=== PATIENT | female | born 1965 | race Caucasian/White ===

== ENCOUNTER → 2016-09-10 | Outpatient (CLI) | payer OTHER ==
[~2016-09-10] MED LIST: CZR50 PO; DOCU-94 PO; EPGI10M SC; FAMO20TA11 PO; FLV1 PO; FNTTP50 TD; GLC500 PO; HYDR-3983 PO; LEVO75TA5 PO; LPT40 PO; LSX40 PO; MYCO500T5 PO; NIFE30TA83 PO; NXM/40 PO; ONDA4TAB10 SL; OXYCONTIN PO; OXYSR10 PO; POTA10TA32 PO; PRED-301 PO; RANI300T PO; SPIR50TA3 PO; SUCR1TAB PO; TPRSR/25 PO; VTMD PO
[2016-09-10 12:02] LABS: ALT/SGPT 13 U/L (12-78); AST/SGOT 11 U/L (15-37)
[2016-09-10 12:09] LABS: ALKALINE PHOSPHATASE 88 U/L (45-117)
[2016-09-10 13:09] LABS: ESTIMATED AVERAGE GLUCOSE 126 mg/dl; HA1C FLAG Normal (Normal)
== END | disposition home or self-care (01) ==
LOC: C.LABSPEC 11:53
PROVIDERS: ATTEND Internal Medicine Rheumatology
DX: R73.9 Hyperglycemia, unspecified (principal); M34.9 Systemic sclerosis, unspecified; Z79.899 Other long term (current) drug therapy; M62.81 Muscle weakness (generalized); K31.819 Angiodysplasia of stomach and duodenum without bleeding; D64.9 Anemia, unspecified; Z51.81 Encounter for therapeutic drug level monitoring

== ENCOUNTER → 2016-09-19 | Day surgery (SDC) | payer OTHER ==
[2016-09-17 08:25] VITALS: Ht 170.2 cm; Wt 83.2 kg
[~2016-09-19] VITALS: Ht 170.2 cm; Wt 83.2 kg
[~2016-09-19] MED LIST changes: -HYDR-3983 PO; +LIDOCAINE HCL 2% 2 ML VIAL (20MG/ML) ONE; +MIDAZOLAM HCL 1 MG/ML 2ML VIAL ONE; +ONDANSETRON INJ 2 MG/ML 2 ML VIAL ONE; +PROPOFOL IV EMULSION 10 MG/ML 20 ML VIAL IV ONE; -SUCR1TAB PO
[2016-09-19 10:57] VITALS: TEMP 37
--- NOTE | 2016-09-19 11:55 | Endo History and Physical ---
History & Physical Date of Service: Sep 19, 2016. Chief Complaint: GAVE Referring Physician: Dr. 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 Past Medical History Gastrointestinal Disorder, Glaucoma, Reflux, High Cholesterol, Sleep Apnea, Hypertension, COPD, Chronic Steroid Use, [place] Past Surgical History Hx Cardiac Surgery: No Hx Internal Defibrillator: No Hx Pacemaker: No Hx Abdominal Surgery: Yes (, ERUM, JEFE, APPY) Hx of Implantable Prosthesis: No Hx Post-Op Nausea and Vomiting: No Hx Cancer Surgery: No Hx Thoracic Surgery: No Hx Orthopedic: Yes (RT/LEFT CTR) Hx Urinary Tract Surgery: No Family History Colon CA, IBD Social History Smoking Status: Former Smoker Hx Substance Use: No Allergies Coded Allergies: Omalizumab (Verified Allergy, Severe, ANAPHYLACTIC, 09/17/16) Sulfa Antibiotics (Verified Allergy, Severe, ANAPHYLAXIS, 09/17/16) Current Medications Reported Home Medications Medications Dose Route/Sig Max Daily Dose Days Date Category Dose Instructions Pepcid (Famotidine) 20 Mg Tab 20 Mg PO DAILY PRN 09/17/16 Reported Duragesic (Fentanyl) 50 Mcg Tdsy 50 Mcg TD CQ72HR 08/14/16 Reported [Oxycontin] 5 Mg PO Q4H 08/14/16 Reported Colace (Docusate Sodium) 100 Mg Cap 100 Mg PO TID 01/09/16 Reported Procrit (Epoetin Rolan) Unknown Strength Inj 1 Dose SC UD 01/09/16 Reported Prednisone 5 Mg Tab 5 Mg PO QAM 01/09/16 Reported Mycophenolate Mofetil 500 Mg Tab 1,000 Mg PO BID 01/09/16 Reported Metformin HCl 500 Mg Tab 500 Mg PO BID 01/09/16 Reported Atorvastatin Calcium (Atorvastatin) 40 Mg Tab 40 Mg PO HS 01/09/16 Reported Furosemide 40 Mg Tab 80 Mg PO QAM 01/09/16 Reported Metoprolol Succinate ER (Metoprolol Succinate) 25 Mg Tabcr 12.5 Mg PO QAM 01/09/16 Reported Aldactone (Spironolactone) 50 Mg Tab 50 Mg PO QAM 01/09/16 Reported Vitamin D (Ergocalciferol) 50,000 Interunit Cap 50,000 Inter.unit PO WK 01/09/16 Reported TAKE THIS MEDICATION EVERY SATURDAY Folic Acid 1 Mg Tab 1 Mg PO BID 01/09/16 Reported Losartan Potassium 50 Mg Tab 50 Mg PO QAM 01/09/16 Reported Potassium Chloride Er (Potassium Chloride Microencaps) 10 Meq Tab 10 Meq PO QAM 01/09/16 Reported TAKE THIS MEDICATION WITH FOOD Levothyroxine Sodium 75 Mcg Tab 75 Mcg PO QAM 11/04/15 Reported Procardia Xl Ext Rel (Nifedipine) 30 Mg Tabcr 30 Mg PO QAM 06/08/15 Reported Zofran Odt (Ondansetron HCl) 4 Mg Tab 4 Mg SL Q6-8HRS PRN 10/23/13 Reported Zantac (Ranitidine Hcl) 300 Mg Tab 300 Mg PO HS 10/15/13 Reported Nexium (Esomeprazole Magnesium) 40 Mg Cap 40 Mg PO BID 08/19/12 Reported TAKE THIS MEDICATION 30 MINUTES BEFORE BREAKFAST AND EVENING MEALS Vital Signs Weight (Kilograms): 83.18 Height (Feet): 5 Height (Inches): 7 Date Time Temp Pulse Resp B/P Pulse Ox O2 Delivery O2 Flow Rate FiO2 09/19/16 11:53 105/49 09/19/16 11:00 87/52 09/19/16 10:57 37 60 20 84/45 98 Room Air Physical Exam General Appearance: WD/WN, no apparent distress Respiratory/Chest: Auscultation: breath sounds normal Cardiovascular: Heart Auscultation: RRR Abdomen: Bowel Sounds: normal Inspection & Palpation: soft, non-distended, no tenderness, guarding & rebound Assessment and Plan Assessment: 51 yo CF who presents for 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
--- NOTE | 2016-09-19 13:38 | Discharge Instructions ---
Endoscopy Patient Instructions Date / Procedure(s) Performed Sep 19, 2016. EGD Allergy Information Coded Allergies: Omalizumab (Verified Allergy, Severe, ANAPHYLACTIC, 09/17/16) Sulfa Antibiotics (Verified Allergy, Severe, ANAPHYLAXIS, 09/17/16) Discharge Date / Findings Sep 19, 2016. GAVE s/p APC Medication Instructions Stopped Medication(s): last dose Metformin Saturday OK to resume all medications today as prescribed Reported Home Medications Medications Dose Route/Sig Max Daily Dose Days Date Category Dose Instructions Pepcid (Famotidine) 20 Mg Tab 20 Mg PO DAILY PRN 09/17/16 Reported Duragesic (Fentanyl) 50 Mcg Tdsy 50 Mcg TD CQ72HR 08/14/16 Reported [Oxycontin] 5 Mg PO Q4H 08/14/16 Reported Colace (Docusate Sodium) 100 Mg Cap 100 Mg PO TID 01/09/16 Reported Procrit (Epoetin Rolan) Unknown Strength Inj 1 Dose SC UD 01/09/16 Reported Prednisone 5 Mg Tab 5 Mg PO QAM 01/09/16 Reported Mycophenolate Mofetil 500 Mg Tab 1,000 Mg PO BID 01/09/16 Reported Metformin HCl 500 Mg Tab 500 Mg PO BID 01/09/16 Reported Atorvastatin Calcium (Atorvastatin) 40 Mg Tab 40 Mg PO HS 01/09/16 Reported Furosemide 40 Mg Tab 80 Mg PO QAM 01/09/16 Reported Metoprolol Succinate ER (Metoprolol Succinate) 25 Mg Tabcr 12.5 Mg PO QAM 01/09/16 Reported Aldactone (Spironolactone) 50 Mg Tab 50 Mg PO QAM 01/09/16 Reported Vitamin D (Ergocalciferol) 50,000 Interunit Cap 50,000 Inter.unit PO WK 01/09/16 Reported TAKE THIS MEDICATION EVERY SATURDAY Folic Acid 1 Mg Tab 1 Mg PO BID 01/09/16 Reported Losartan Potassium 50 Mg Tab 50 Mg PO QAM 01/09/16 Reported Potassium Chloride Er (Potassium Chloride Microencaps) 10 Meq Tab 10 Meq PO QAM 01/09/16 Reported TAKE THIS MEDICATION WITH FOOD Levothyroxine Sodium 75 Mcg Tab 75 Mcg PO QAM 11/04/15 Reported Procardia Xl Ext Rel (Nifedipine) 30 Mg Tabcr 30 Mg PO QAM 06/08/15 Reported Zofran Odt (Ondansetron HCl) 4 Mg Tab 4 Mg SL Q6-8HRS PRN 10/23/13 Reported Zantac (Ranitidine Hcl) 300 Mg Tab 300 Mg PO HS 10/15/13 Reported Nexium (Esomeprazole Magnesium) 40 Mg Cap 40 Mg PO BID 08/19/12 Reported TAKE THIS MEDICATION 30 MINUTES BEFORE BREAKFAST AND EVENING MEALS Provider Instructions Activity Restrictions - No exercising or heavy lifting for 24 hours. - Do not drink alcohol the day of the procedure. - Do not drive a car or operate machinery until the day after the procedure. - Do not make any important decisions or sign important papers in 24 hours after the procedure. Following Day: - Return to full activity which may include returning to work/school. Diet Start your diet with liquids and light foods (jello, soup, juice, toast). Then eat your usual diet if not nauseated. Treatment For Common After Affects For mild abdominal pain, bloating, or excessive gas: - Rest - Eat lightly - Lie on right side Follow-Up Information Follow-up with Dr. Lan Sanchez as scheduled Anesthesia Information What You Should Know You have had a procedure that required some medicine to reduce anxiety and discomfort. This treatment is called moderate sedation. After receiving the treatment, you may be sleepy, but you will be able to breathe on your own. The effects of the treatment may last for several hours. Follow these instructions along with Activity/Diet recommendations noted above: * Do NOT do anything where dizziness or clumsiness would be dangerous. * Rest quietly at home today, then you can be up and about tomorrow. * Have a responsible person stay with you the rest of today. * You may have had an I.V. today. If so, you may take the dressing off later today. Recommendations Call your doctor if: * Trouble breathing * Continuous vomiting for more than 24 hours * Temperature above 101 degrees * Severe abdominal pain or bloating * Pain not relieved by pain medicine ordered * There is increased drainage or redness from any incision * A large amount of rectal bleeding greater than 2-3 tablespoons. (If you had a polyp/s removed or have hemorrhoids, a small amount of blood - from the rectum is to be expected.) * You have any unanswered questions or concerns. IN THE EVENT OF A SERIOUS EMERGENCY, GO TO THE NEAREST EMERGENCY ROOM Your discharge instructions were prepared by provider Tony G. Case. Patient Instructions Signature Page Jessie Elise Patient (or Guardian) Signature/Date: I have read and understand the instructions given to me by my caregivers. Caregiver/RN/Doctor Signature/Date: The above-named patient and/or guardian has received patient instructions on this date. + Original Patient Signature Page (only) stays with chart. Please make copy for patient.
[2016-09-19 14:08] VITALS: BP 98/55; PULSE 61; O2SAT 95
--- NOTE | 2016-09-19 15:19 | GI REPORT ---
Procedure Date: 09/19/2016 1:09 PM Procedure: Upper GI endoscopy Indications: Watermelon stomach (GAVE syndrome) Medicines: Monitored Anesthesia Care Complications: No immediate complications. Estimated Blood Loss: Estimated blood loss: none. Procedure: Pre-Anesthesia Assessment: - Prior to the procedure, a History and Physical was performed, and patient medications and allergies were reviewed. The patient's tolerance of previous anesthesia was also reviewed. The risks and benefits of the procedure and the sedation options and risks were discussed with the patient. All questions were answered, and informed consent was obtained. Prior Anticoagulants: The patient has taken no previous anticoagulant or antiplatelet agents. ASA Grade Assessment: III - A patient with severe systemic disease. After reviewing the risks and benefits, the patient was deemed in satisfactory condition to undergo the procedure. After obtaining informed consent, the endoscope was passed under direct vision. Throughout the procedure, the patient's blood pressure, pulse, and oxygen saturations were monitored continuously. The Scope was introduced through the mouth, and advanced to the second part of duodenum. The upper GI endoscopy was accomplished without difficulty. The patient tolerated the procedure well. Findings: The esophagus was normal. 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 Coagulation for hemostasis using argon plasma was successful. The examined duodenum was normal. Impression: - Normal esophagus. - Gastric antral vascular ectasia with bleeding. Treated with argon plasma coagulation (APC). - Normal examined duodenum. - No specimens collected. Recommendation: - Resume previous diet. - Continue present medications. - Repeat the upper endoscopy PRN for retreatment. - Return to referring physician as previously scheduled. Tony Luna, DO 09/19/2016 1:36:44 PM This report has been signed electronically. Note Initiated On: 09/19/2016 1:09 PM I attest to the content of the Intraoperative Record and orders documented therein, exceptions below
--- NOTE | 2016-09-19 15:32 | Anesthesiology Progress Note ---
Anesthesia Post Op Note Date & Time Sep 19, 2016 at 15:32 Vital Signs Pain Intensity: 0 Vital Signs Past 12 Hours Date Time Temp Pulse Resp B/P Pulse Ox O2 Delivery O2 Flow Rate FiO2 09/19/16 14:08 61 20 98/55 95 Room Air 09/19/16 13:52 60 20 98/52 94 Room Air 09/19/16 13:37 63 20 96/51 97 Room Air 09/19/16 11:53 105/49 09/19/16 11:00 87/52 09/19/16 10:57 37 60 20 84/45 98 Room Air Notes Mental Status: alert / awake / arousable Nausea / Vomiting: adequately controlled Pain: adequately controlled Airway Patency, RR, SpO2: stable & adequate BP & HR: stable & adequate Hydration State: stable & adequate Anesthetic Complications: no major complications apparent
== END | disposition home or self-care (01) ==
LOC: C.GI 10:08
PROVIDERS: ATTEND Internal Medicine
DX: K31.811 Angiodysplasia of stomach and duodenum with bleeding (principal); E11.9 Type 2 diabetes mellitus without complications; I10 Essential (primary) hypertension; F41.9 Anxiety disorder, unspecified; H40.9 Unspecified glaucoma; K21.9 Gastro-esophageal reflux disease without esophagitis; I25.2 Old myocardial infarction; Z79.52 Long term (current) use of systemic steroids; Z87.891 Personal history of nicotine dependence; Z88.2 Allergy status to sulfonamides; Z80.0 Family history of malignant neoplasm of digestive organs

== ENCOUNTER → 2016-12-24 | Outpatient (CLI) | payer OTHER ==
[~2016-12-24] MED LIST changes: -LIDOCAINE HCL 2% 2 ML VIAL (20MG/ML) ONE; -MIDAZOLAM HCL 1 MG/ML 2ML VIAL ONE; -ONDANSETRON INJ 2 MG/ML 2 ML VIAL ONE; -PROPOFOL IV EMULSION 10 MG/ML 20 ML VIAL IV ONE
--- NOTE | 2016-12-24 12:04 | DIAGNOSTIC IMAGING REPORT ---
CHEST 2 VIEWS ROUTINE CLINICAL HISTORY: GENERAL WEAKNESS COMPARISON STUDY: 01/09/2016 FINDINGS: The cardiac and sternal contours remain stable. There is a left-sided A-Port catheter unchanged in position. There is no failure. There is no lobar consolidation. There are no pleural effusions. There are linear scarlike densities within the right midlung zone. There is basilar interstitial thickening best visualized in the lateral view.[ IMPRESSION: No acute findings. Right midlung zone scarring. Basilar interstitial thickening. Electronically signed by: Christopher Gan M.D. 12/24/2016 12:03 PM Dictated Date/Time: 12/24/2016 12:01 PM
[2016-12-24 13:30] LABS: BASO % 0.2 %; BASO ABS # 0.03 K/uL (0-0.2); COMPLETE YES; HEMATOCRIT 35.7 % (37-47); IG% 0.2 %; LYMPH ABS # 0.61 K/uL (1.2-3.4); MEAN CELL VOLUME 84.6 fL (80-100); MEAN CORPUSCULAR HEMOGLOBIN 25.4 pg (25-34); MEAN PLATELET VOLUME 10.2 fL (7.4-10.4); MONO % 3.8 %; NEUT % 89.8 %; PLATELET COUNT 352 K/uL (130-400); RED BLOOD COUNT 4.22 M/uL (4.2-5.4); WHITE BLOOD COUNT 12.23 K/uL (4.8-10.8)
[2016-12-24 13:35] LABS: URINE APPEARANCE CLEAR (CLEAR); URINE BILIRUBIN NEG (NEG); URINE COLOR YELLOW; URINE EPITHELIAL CELL AUTO >30 /lpf (0-5); URINE NITRITE NEG (NEG); URINE PH 5.5 (4.5-7.5); URINE SPECIFIC GRAVITY 1.016 (1.000-1.030); UROBILINOGEN NEG (NEG)
[2016-12-24 13:36] LABS: ESTIMATED AVERAGE GLUCOSE 143 mg/dl; HA1C FLAG Normal (Normal)
[2016-12-24 13:45] LABS: MANUAL MICROSCOPIC REQUIRED? NO; REVIEW REQ? NO
[2016-12-24 13:48] LABS: URINE PROTIEN/CREAT RATIO 0.2 (0-0.2); URINE TOTAL PROTEIN 20.3 mg/dl (0-11.9)
[2016-12-24 14:06] LABS: ALT/SGPT 11 U/L (12-78); AST/SGOT 12 U/L (15-37); BLOOD UREA NITROGEN 33 mg/dl (7-18); BUN/CREATININE RATIO 15.8 (10-20); CALCIUM 8.6 mg/dl (8.5-10.1); CARBON DIOXIDE 31 mmol/L (21-32); CHLORIDE 93 mmol/L (98-107); GLUCOSE 134 mg/dl (70-99); POTASSIUM 4.4 mmol/L (3.5-5.1); SODIUM 133 mmol/L (136-145)
[2016-12-24 14:08] LABS: THYROID STIMULATING HORMONE 0.556 uIu/ml (0.300-4.500)
[2016-12-24 14:17] LABS: ALB/GLOB RATIO 1.1 (0.9-2); ALKALINE PHOSPHATASE 81 U/L (45-117); THYROID STIMULATING HORMONE 0.584 uIu/ml (0.300-4.500)
== END | disposition home or self-care (01) ==
LOC: C.RADBC 11:21
PROVIDERS: ATTEND Physician Assistant Medical
DX: R53.1 Weakness (principal); R60.9 Edema, unspecified; R63.4 Abnormal weight loss; R53.83 Other fatigue; E04.9 Nontoxic goiter, unspecified; E11.9 Type 2 diabetes mellitus without complications

== ENCOUNTER → 2017-02-26 | Outpatient (CLI) | payer OTHER ==
[~2017-02-26] MED LIST changes: -OXYCONTIN PO
[2017-02-26 09:44] LABS: BLOOD UREA NITROGEN 43 mg/dl (7-18); BUN/CREATININE RATIO 23.8 (10-20); CALCIUM 9.3 mg/dl (8.5-10.1); CARBON DIOXIDE 28 mmol/L (21-32); CHLORIDE 96 mmol/L (98-107); GLUCOSE 180 mg/dl (70-99); POTASSIUM 4.2 mmol/L (3.5-5.1); SODIUM 133 mmol/L (136-145)
[2017-02-26 09:50] LABS: PHOSPHORUS 3.6 mg/dl (2.5-4.9)
== END | disposition home or self-care (01) ==
LOC: C.LAB 16:43
PROVIDERS: ATTEND Internal Medicine Nephrology
DX: N28.9 Disorder of kidney and ureter, unspecified (principal); D64.9 Anemia, unspecified; Z51.81 Encounter for therapeutic drug level monitoring; Z79.899 Other long term (current) drug therapy; M34.9 Systemic sclerosis, unspecified

== ENCOUNTER → 2017-03-13 | Day surgery (SDC) | payer OTHER ==
[2017-02-21 12:08] VITALS: Ht 170.2 cm; Wt 75.0 kg
[~2017-03-13] VITALS: Ht 170.2 cm; Wt 75.0 kg
[~2017-03-13] MED LIST changes: +LIDOCAINE HCL 2% 2 ML VIAL (20MG/ML) ONE; +PROPOFOL IV EMULSION 10 MG/ML 20 ML VIAL IV ONE; +SODIUM CHLORIDE 0.9% 500ML 500 ML IV ONE
--- NOTE | 2017-03-13 10:54 | Endo History and Physical ---
History & Physical Date of Service: Mar 13, 2017. Chief Complaint: GAVE Referring Physician: Dr. 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 Past Medical History Gastrointestinal Disorder, Glaucoma, Reflux, High Cholesterol, Sleep Apnea, Hypertension, COPD, Chronic Steroid Use, [place] Past Surgical History Hx Cardiac Surgery: No Hx Internal Defibrillator: No Hx Pacemaker: No Hx Abdominal Surgery: Yes (, ERUM, JEFE, APPY) Hx of Implantable Prosthesis: No Hx Post-Op Nausea and Vomiting: No Hx Cancer Surgery: No Hx Thoracic Surgery: No Hx Orthopedic: Yes (RT/LT CTR) Hx Urinary Tract Surgery: No Family History Colon CA, IBD Social History Smoking Status: Former Smoker Hx Substance Use: Yes (REFER TO MED LIST) Hx Alcohol Use: No Allergies Coded Allergies: Omalizumab (Verified Allergy, Severe, ANAPHYLACTIC, 02/21/17) Sulfa Antibiotics (Verified Allergy, Severe, ANAPHYLAXIS, 02/21/17) Current Medications Reported Home Medications Medications Dose Route/Sig Max Daily Dose Days Date Category Dose Instructions Oxycontin (Oxycodone HCl) 10 Mg Tabcr 1 Tab PO Q4H 02/21/17 Reported Pepcid (Famotidine) 20 Mg Tab 20 Mg PO DAILY PRN 09/17/16 Reported Duragesic (Fentanyl) 50 Mcg Tdsy 50 Mcg TD CQ72HR 08/14/16 Reported Colace (Docusate Sodium) 100 Mg Cap 100 Mg PO TID 01/09/16 Reported Procrit (Epoetin Rolan) Unknown Strength Inj 1 Dose SC UD 01/09/16 Reported Prednisone 5 Mg Tab 5 Mg PO QAM 01/09/16 Reported Mycophenolate Mofetil 500 Mg Tab 1,000 Mg PO BID 01/09/16 Reported Metformin HCl 500 Mg Tab 500 Mg PO BID 01/09/16 Reported Atorvastatin Calcium (Atorvastatin) 40 Mg Tab 40 Mg PO HS 01/09/16 Reported Furosemide 40 Mg Tab 80 Mg PO QAM 01/09/16 Reported Metoprolol Succinate ER (Metoprolol Succinate) 25 Mg Tabcr 12.5 Mg PO QAM 01/09/16 Reported Aldactone (Spironolactone) 50 Mg Tab 50 Mg PO QAM 01/09/16 Reported Vitamin D (Ergocalciferol) 50,000 Interunit Cap 50,000 Inter.unit PO WK 01/09/16 Reported TAKE THIS MEDICATION EVERY SATURDAY Folic Acid 1 Mg Tab 1 Mg PO BID 01/09/16 Reported Losartan Potassium 50 Mg Tab 50 Mg PO QAM 01/09/16 Reported Potassium Chloride Er (Potassium Chloride Microencaps) 10 Meq Tab 10 Meq PO QAM 01/09/16 Reported TAKE THIS MEDICATION WITH FOOD Levothyroxine Sodium 75 Mcg Tab 75 Mcg PO QAM 11/04/15 Reported Procardia Xl Ext Rel (Nifedipine) 30 Mg Tabcr 30 Mg PO QAM 06/08/15 Reported Zofran Odt (Ondansetron HCl) 4 Mg Tab 4 Mg SL Q6-8HRS PRN 10/23/13 Reported Zantac (Ranitidine Hcl) 300 Mg Tab 300 Mg PO HS 10/15/13 Reported Nexium (Esomeprazole Magnesium) 40 Mg Cap 40 Mg PO BID 08/19/12 Reported TAKE THIS MEDICATION 30 MINUTES BEFORE BREAKFAST AND EVENING MEALS Vital Signs Weight (Kilograms): 75 Height (Feet): 5 Height (Inches): 7 Physical Exam General Appearance: WD/WN, no apparent distress Respiratory/Chest: Auscultation: breath sounds normal Cardiovascular: Heart Auscultation: RRR Abdomen: Bowel Sounds: normal Inspection & Palpation: soft, non-distended, no tenderness, guarding & rebound Assessment and Plan Assessment: 51 yo CF who presents for 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 Plan: Proceed with EGD.
--- NOTE | 2017-03-13 11:49 | Discharge Instructions ---
Endoscopy Patient Instructions Date / Procedure(s) Performed Mar 13, 2017. EGD Allergy Information Coded Allergies: Omalizumab (Verified Allergy, Severe, ANAPHYLACTIC, 03/13/17) Sulfa Antibiotics (Verified Allergy, Severe, ANAPHYLAXIS, 03/13/17) Discharge Date / Findings Mar 13, 2017. GAVE s/p therapy with APC Medication Instructions OK to resume all medications today as prescribed Reported Home Medications Medications Dose Route/Sig Max Daily Dose Days Date Category Dose Instructions Oxycontin (Oxycodone HCl) 10 Mg Tabcr 1 Tab PO Q4H 02/21/17 Reported Pepcid (Famotidine) 20 Mg Tab 20 Mg PO DAILY PRN 09/17/16 Reported Duragesic (Fentanyl) 50 Mcg Tdsy 50 Mcg TD CQ72HR 08/14/16 Reported Colace (Docusate Sodium) 100 Mg Cap 100 Mg PO TID 01/09/16 Reported Procrit (Epoetin Rolan) Unknown Strength Inj 1 Dose SC UD 01/09/16 Reported Prednisone 5 Mg Tab 5 Mg PO QAM 01/09/16 Reported Mycophenolate Mofetil 500 Mg Tab 1,000 Mg PO BID 01/09/16 Reported Metformin HCl 500 Mg Tab 500 Mg PO BID 01/09/16 Reported Atorvastatin Calcium (Atorvastatin) 40 Mg Tab 40 Mg PO HS 01/09/16 Reported Furosemide 40 Mg Tab 80 Mg PO QAM 01/09/16 Reported Metoprolol Succinate ER (Metoprolol Succinate) 25 Mg Tabcr 12.5 Mg PO QAM 01/09/16 Reported Aldactone (Spironolactone) 50 Mg Tab 50 Mg PO QAM 01/09/16 Reported Vitamin D (Ergocalciferol) 50,000 Interunit Cap 50,000 Inter.unit PO WK 01/09/16 Reported TAKE THIS MEDICATION EVERY SATURDAY Folic Acid 1 Mg Tab 1 Mg PO BID 01/09/16 Reported Losartan Potassium 50 Mg Tab 50 Mg PO QAM 01/09/16 Reported Potassium Chloride Er (Potassium Chloride Microencaps) 10 Meq Tab 10 Meq PO QAM 01/09/16 Reported TAKE THIS MEDICATION WITH FOOD Levothyroxine Sodium 75 Mcg Tab 75 Mcg PO QAM 11/04/15 Reported Procardia Xl Ext Rel (Nifedipine) 30 Mg Tabcr 30 Mg PO QAM 06/08/15 Reported Zofran Odt (Ondansetron HCl) 4 Mg Tab 4 Mg SL Q6-8HRS PRN 10/23/13 Reported Zantac (Ranitidine Hcl) 300 Mg Tab 300 Mg PO HS 10/15/13 Reported Nexium (Esomeprazole Magnesium) 40 Mg Cap 40 Mg PO BID 08/19/12 Reported TAKE THIS MEDICATION 30 MINUTES BEFORE BREAKFAST AND EVENING MEALS Provider Instructions Activity Restrictions - No exercising or heavy lifting for 24 hours. - Do not drink alcohol the day of the procedure. - Do not drive a car or operate machinery until the day after the procedure. - Do not make any important decisions or sign important papers in 24 hours after the procedure. Following Day: - Return to full activity which may include returning to work/school. Diet Start your diet with liquids and light foods (jello, soup, juice, toast). Then eat your usual diet if not nauseated. Treatment For Common After Affects For mild abdominal pain, bloating, or excessive gas: - Rest - Eat lightly - Lie on right side Follow-Up Information Follow-up with DR SHERMAN as scheduled Anesthesia Information What You Should Know You have had a procedure that required some medicine to reduce anxiety and discomfort. This treatment is called moderate sedation. After receiving the treatment, you may be sleepy, but you will be able to breathe on your own. The effects of the treatment may last for several hours. Follow these instructions along with Activity/Diet recommendations noted above: * Do NOT do anything where dizziness or clumsiness would be dangerous. * Rest quietly at home today, then you can be up and about tomorrow. * Have a responsible person stay with you the rest of today. * You may have had an I.V. today. If so, you may take the dressing off later today. Recommendations Call your doctor if: * Trouble breathing * Continuous vomiting for more than 24 hours * Temperature above 101 degrees * Severe abdominal pain or bloating * Pain not relieved by pain medicine ordered * There is increased drainage or redness from any incision * A large amount of rectal bleeding greater than 2-3 tablespoons. (If you had a polyp/s removed or have hemorrhoids, a small amount of blood - from the rectum is to be expected.) * You have any unanswered questions or concerns. IN THE EVENT OF A SERIOUS EMERGENCY, GO TO THE NEAREST EMERGENCY ROOM Your discharge instructions were prepared by provider Tony Luna. Patient Instructions Signature Page Jessie Olivares Patient (or Guardian) Signature/Date: I have read and understand the instructions given to me by my caregivers. Caregiver/RN/Doctor Signature/Date: The above-named patient and/or guardian has received patient instructions on this date. + Original Patient Signature Page (only) stays with chart. Please make copy for patient.
[2017-03-13 12:12] VITALS: BP 175/98; PULSE 66; O2SAT 96
--- NOTE | 2017-03-13 12:13 | Anesthesiology Progress Note ---
Anesthesia Post Op Note Date & Time Mar 13, 2017 at 12:13 Vital Signs Pain Intensity: 4 Vital Signs Past 12 Hours Date Time Temp Pulse Resp B/P (MAP) Pulse Ox O2 Delivery O2 Flow Rate FiO2 03/13/17 11:56 66 18 110/65 (80) 95 Room Air 03/13/17 11:41 69 18 110/64 (79) 95 Room Air 03/13/17 11:03 37.2 68 18 119/68 (85) 95 Room Air Notes Mental Status: alert / awake / arousable, participated in evaluation Pt Amnestic to Procedure: Yes Nausea / Vomiting: adequately controlled Pain: adequately controlled Airway Patency, RR, SpO2: stable & adequate BP & HR: stable & adequate Hydration State: stable & adequate Anesthetic Complications: no major complications apparent
--- NOTE | 2017-03-14 00:15 | GI REPORT ---
Procedure Date: 03/13/2017 11:19 AM Procedure: Upper GI endoscopy Indications: Watermelon stomach (GAVE syndrome) Medicines: Monitored Anesthesia Care Complications: No immediate complications. Estimated Blood Loss: Estimated blood loss: none. Procedure: Pre-Anesthesia Assessment: - Prior to the procedure, a History and Physical was performed, and patient medications and allergies were reviewed. The patient's tolerance of previous anesthesia was also reviewed. The risks and benefits of the procedure and the sedation options and risks were discussed with the patient. All questions were answered, and informed consent was obtained. Prior Anticoagulants: The patient has taken no previous anticoagulant or antiplatelet agents. ASA Grade Assessment: III - A patient with severe systemic disease. After reviewing the risks and benefits, the patient was deemed in satisfactory condition to undergo the procedure. After obtaining informed consent, the endoscope was passed under direct vision. Throughout the procedure, the patient's blood pressure, pulse, and oxygen saturations were monitored continuously. The Scope was introduced through the mouth, and advanced to the second part of duodenum. The upper GI endoscopy was accomplished without difficulty. The patient tolerated the procedure well. Findings: The esophagus was normal. Mild gastric antral vascular ectasia without bleeding was present in the gastric antrum. Coagulation for bleeding prevention using argon plasma at 0.4 liters/minute and 35 pedraza was successful. The examined duodenum was normal. Impression: - Normal esophagus. - Gastric antral vascular ectasia without bleeding. Treated with argon plasma coagulation (APC). - Normal examined duodenum. - No specimens collected. Recommendation: - Resume previous diet. - Continue present medications. - Return to primary care physician as previously scheduled. Tony Luna, DO 03/13/2017 11:48:32 AM This report has been signed electronically. Note Initiated On: 03/13/2017 11:19 AM I attest to the content of the Intraoperative Record and orders documented therein, exceptions below
== END | disposition home or self-care (01) ==
LOC: C.GI 10:40
PROVIDERS: ATTEND Internal Medicine
DX: K31.819 Angiodysplasia of stomach and duodenum without bleeding (principal); I10 Essential (primary) hypertension; E78.00 Pure hypercholesterolemia, unspecified; K21.9 Gastro-esophageal reflux disease without esophagitis; K44.9 Diaphragmatic hernia without obstruction or gangrene; G47.30 Sleep apnea, unspecified; I25.2 Old myocardial infarction; Z87.891 Personal history of nicotine dependence; Z79.52 Long term (current) use of systemic steroids; Z80.0 Family history of malignant neoplasm of digestive organs; Z83.79 Family history of other diseases of the digestive system; Z79.84 Long term (current) use of oral hypoglycemic drugs; Z79.899 Other long term (current) drug therapy

== ENCOUNTER → 2017-04-09 | Outpatient (CLI) | payer OTHER ==
[~2017-04-09] MED LIST changes: -LIDOCAINE HCL 2% 2 ML VIAL (20MG/ML) ONE; -PROPOFOL IV EMULSION 10 MG/ML 20 ML VIAL IV ONE; -SODIUM CHLORIDE 0.9% 500ML 500 ML IV ONE
[2017-04-09 11:35] LABS: BLOOD UREA NITROGEN 46 mg/dl (7-18); BUN/CREATININE RATIO 23.1 (10-20); CALCIUM 8.8 mg/dl (8.5-10.1); CARBON DIOXIDE 31 mmol/L (21-32); CHLORIDE 94 mmol/L (98-107); GLUCOSE 176 mg/dl (70-99); MAGNESIUM 4.4 mg/dl (1.8-2.4); PHOSPHORUS 2.9 mg/dl (2.5-4.9); POTASSIUM 4.8 mmol/L (3.5-5.1); SODIUM 132 mmol/L (136-145)
== END | disposition home or self-care (01) ==
LOC: C.LAB 16:27
PROVIDERS: ATTEND Internal Medicine Nephrology
DX: E55.9 Vitamin D deficiency, unspecified (principal); D64.9 Anemia, unspecified; Z51.81 Encounter for therapeutic drug level monitoring; Z79.899 Other long term (current) drug therapy

== ENCOUNTER → 2017-04-23 | Outpatient (CLI) | payer OTHER ==
[2017-04-23 12:18] LABS: URINE APPEARANCE CLEAR (CLEAR); URINE BILIRUBIN NEG (NEG); URINE COLOR YELLOW; URINE NITRITE NEG (NEG); URINE PH >= 9.0 (4.5-7.5); URINE SPECIFIC GRAVITY 1.014 (1.000-1.030); UROBILINOGEN NEG (NEG); ZZUR CULT IF INDIC CLEAN CATCH NO
[2017-04-23 12:21] LABS: BASO % 0.4 %; BASO ABS # 0.05 K/uL (0-0.2); COMPLETE YES; EOS % 0.8 %; IG% 0.2 %; LYMPH ABS # 0.73 K/uL (1.2-3.4); MEAN CELL VOLUME 83.5 fL (80-100); MEAN CORPUSCULAR HEMOGLOBIN 24.8 pg (25-34); MEAN CORPUSCULAR HGB CONC 29.7 g/dl (32-36); MEAN PLATELET VOLUME 9.8 fL (7.4-10.4); MONO % 2.9 %; NEUT % 89.7 %; PLATELET COUNT 332 K/uL (130-400); RED BLOOD COUNT 3.95 M/uL (4.2-5.4); WHITE BLOOD COUNT 12.26 K/uL (4.8-10.8)
[2017-04-23 12:24] LABS: MANUAL MICROSCOPIC REQUIRED? NO; REVIEW REQ? NO
[2017-04-23 12:52] LABS: AST/SGOT 21 U/L (15-37); BLOOD UREA NITROGEN 51 mg/dl (7-18); BUN/CREATININE RATIO 28.4 (10-20); CALCIUM 8.6 mg/dl (8.5-10.1); CARBON DIOXIDE 31 mmol/L (21-32); CHLORIDE 94 mmol/L (98-107); GLUCOSE 125 mg/dl (70-99); MAGNESIUM 4.5 mg/dl (1.8-2.4); PHOSPHORUS 3.9 mg/dl (2.5-4.9); POTASSIUM 4.5 mmol/L (3.5-5.1); SODIUM 134 mmol/L (136-145)
[2017-04-23 13:14] LABS: ALKALINE PHOSPHATASE 103 U/L (45-117); ALT/SGPT 18 U/L (12-78); PREALBUMIN 23.1 mg/dl (20-40); THYROID STIMULATING HORMONE 0.871 uIu/ml (0.300-4.500)
== END | disposition home or self-care (01) ==
LOC: C.LAB 09:52
PROVIDERS: ATTEND Family Medicine
DX: R60.9 Edema, unspecified (principal); E11.9 Type 2 diabetes mellitus without complications; E83.41 Hypermagnesemia; D50.9 Iron deficiency anemia, unspecified; E03.9 Hypothyroidism, unspecified; R63.4 Abnormal weight loss

== ENCOUNTER → 2017-05-14 | Outpatient (CLI) | payer OTHER ==
[2017-05-14 10:45] LABS: BASO % 0.7 %; BASO ABS # 0.07 K/uL (0-0.2); COMPLETE YES; EOS % 1.2 %; HEMATOCRIT 31.6 % (37-47); IG% 0.1 %; LYMPH % 5.6 %; LYMPH ABS # 0.54 K/uL (1.2-3.4); MEAN CELL VOLUME 83.2 fL (80-100); MEAN CORPUSCULAR HEMOGLOBIN 24.7 pg (25-34); MEAN CORPUSCULAR HGB CONC 29.7 g/dl (32-36); MEAN PLATELET VOLUME 9.8 fL (7.4-10.4); MONO % 5.5 %; NEUT % 86.9 %; PLATELET COUNT 256 K/uL (130-400); WHITE BLOOD COUNT 9.64 K/uL (4.8-10.8)
== END | disposition home or self-care (01) ==
LOC: C.LAB 10:34
PROVIDERS: ATTEND Nurse Practitioner Family
DX: D50.9 Iron deficiency anemia, unspecified (principal)

== ENCOUNTER → 2017-05-31 | Outpatient (CLI) | payer OTHER ==
[2017-05-31 13:45] LABS: BLOOD UREA NITROGEN 30 mg/dl (7-18); BUN/CREATININE RATIO 25.5 (10-20); CARBON DIOXIDE 29 mmol/L (21-32); CHLORIDE 98 mmol/L (98-107); CREATININE 1.19 mg/dl (0.60-1.20); GLUCOSE 157 mg/dl (70-99); MAGNESIUM 3.1 mg/dl (1.8-2.4); POTASSIUM 4.4 mmol/L (3.5-5.1); SODIUM 134 mmol/L (136-145)
[2017-05-31 13:46] LABS: PHOSPHORUS 3.3 mg/dl (2.5-4.9)
== END | disposition home or self-care (01) ==
LOC: C.CPL 11:55
PROVIDERS: ATTEND Family Medicine
DX: E83.41 Hypermagnesemia (principal); N28.9 Disorder of kidney and ureter, unspecified

== ENCOUNTER → 2017-07-24 | Day surgery (SDC) | payer OTHER ==
[2017-07-10 16:50] VITALS: Ht 170.2 cm; Wt 67.3 kg
[~2017-07-24] VITALS: Ht 170.2 cm; Wt 67.3 kg
[~2017-07-24] MED LIST changes: +ACETAMINOPHEN 325 MG TAB PO PRN; +AMVISC PLUS 0.8ML SYRINGE INT OCU ONE; +ATOR-54 PO; +ATROPINE SULFATE 0.1 MG/ML 5ML SYR IV PRN; +BETAXOLOL HCL 0.25% OP SUSP PER DROP CHARGE OPR SCH; +BMX1 PO; +BRIMONIDINE TART 0.2% OP SOLN PER DROP CHARGE ONE; +BSS FLUSH ONE; +DRGTP12 TD; +ENDOCOAT 0.85ML SYRINGE INT OCU ONE; -EPGI10M SC; +EPGI2M; +ERGO500037 PO; +EpHEDrine SULFATE INJ 50 MG/ML AMP IV PRN; +EpINEphrine INJ 1MG/ML AMP 1 MG/ML AMP ONE; +FRS/80 PO; +LACTATED RINGER'S 1000ML 500 ML IV SCH; +LIDOCAINE 4% OP SOLN DROP CHARGE ONE; +LIDOCAINE 4% OP SOLN DROP CHARGE OPR SCH; +LIDOCAINE HCL 1% MPF 2 ML VIAL ONE; +MIDAZOLAM HCL 1 MG/ML 2ML VIAL ONE; +MIX: 4ML BSS 1ML EPI 1:1000 PF INSTIL ONE; +MOXIFLOXACIN OPH SOLN PER DROP CHARGE ONE; +MYCO500T4 PO; +NALO1TAB2 PO; +NIFE30TA86 PO; +NRV5 PO; +NUTRLIQ JT; +OCUCOAT 1 ML SOLN IO ONE; +PANT40TA PO; +POVIDONE-IODINE OP SOLN 30 ML BTL ONE; +PRLSR20 PO; +PROM25TA16 PO; +PROPARACAINE 0.5% OP SOLN PER DROP CHARGE OPR SCH; +RXC5 PO; +SERT-234 PO; -SPIR50TA3 PO; +SPIR50TA5 PO; +TOBRAMYCIN/DEXAMETHASONE OPH OINT PER APPLN CHARGE ONE; -VTMD PO
--- NOTE | 2017-07-24 07:24 | History & Physical Bridge - [place] ---
H&P Re-Evaluation Bridge Note: I have examined the patient, reviewed the History & Physical and in the interval since the performance of the History & Physical I have noted the following changes of clinical significance: No changes noted
[2017-07-24] MEDS: PHENYLEPHRINE HCL 2.5% OP SOLN PER DROP CHARGE OPR SCH ×2 (08:54→08:59)
[2017-07-24] MEDS: TROPICAMIDE 1% OP SOLN PER DROP CHARGE OPR SCH ×2 (08:55→09:00)
[2017-07-24] MEDS: CYCLOPENTOLATE HCL 1% OP SOLN PER DROP CHARGE OPR SCH ×2 (08:56→09:01)
[2017-07-24] MEDS: MOXIFLOXACIN OPH SOLN PER DROP CHARGE OPR SCH ×2 (08:57→09:07)
--- NOTE | 2017-07-24 09:39 | Discharge Instructions-SurgCtr ---
Discharge Instructions Date of Service Jul 24, 2017. Visit Reason for Visit: Cataract Right Eye Discharge Discharge Diagnosis / Problem: lens implant right eye Discharge Goals Goal(s): Improve function Medications Stopped Medications Name(s): METFORMIN LAST DOSE SATURDAY Activity Recommendations Activity Limitations: resume your previous activity Lifting Limitations: no more than 10 pounds Exercise/Sports Limitations: gradually increase as tolerated May Resume Sexual Activity: when tolerated Shower/Bathe: tomorrow Driving or Machine Use: resume 1 day after discharge Anesthesia . Post Anesthesia Instructions: If you have had General Anesthesia or IV Sedation: * Do not drive today. * Resume driving when surgeon permits. * Do not make important decisions or sign legal documents today. * Call surgeon for: 1. Temperature elevations greater than 101 degrees F. 2. Uncontrollable pain. 3. Excessive bleeding. 4. Persistent nausea and vomiting. 5. Medication intolerance (nausea, vomiting or rash). * For nausea and vomiting use only clear liquids such as: tea, soda, bouillon until nausea subsides, then gradually increase diet as tolerated. * If you have any concerns or questions, call your surgeon's office. If physician is unavailable and it is an emergency, call 911 or go to the nearest emergency room. . Instructions / Follow-Up Instructions / Follow-Up ACTIVITY RECOMMENDATIONS: * Light activities. * Mild irritation and blurred vision are common for the first few days. * You may walk outside, read, watch television. * Redness around the white part of the eye is common. MEDICATIONS: Resume previous medications unless instructed otherwise by your surgeon. Start all eye drops at 1 pm today: * Eye drops (today and tomorrow): Prednisone - one drop in operative eye every 3 hours while awake Ofloxacin - one drop in operative eye every 3 hours while awake SPECIAL CARE INSTRUCTIONS: * Tape plastic shield over eye to sleep at night. Call your doctor at with any concerns or problems. FOLLOW UP VISIT: Follow-up with Dr Gao at [place] office as scheduled. Diet Recommendations Home Diet: no limitations Procedures Procedures Performed: cataract extraction with lens implant Pending Studies Studies pending at discharge: no Medical Emergencies . Who to Call and When: Medical Emergencies: If at any time you feel your situation is an emergency, please call 911 immediately. . Non-Emergent Contact Non-Emergency issues call your: Extras Casting Director Call Non-Emergent contact if: your pain is not controlled [phone] . . "Provider Documentation" section prepared by Willis Gao. .
--- NOTE | 2017-07-24 09:41 | [facility] Operative Report ---
Operative Report Date of Service Jul 24, 2017. Operative Report 1. PREOPERATIVE DIAGNOSIS: Pre Senile nuclear cataract, right eye. 2. POSTOPERATIVE DIAGNOSIS: Pre Senile nuclear cataract, right eye. 3. PROCEDURE: Phacoemulsification of right cataract with posterior chamber lens implant, type [employer]ch [employer] Lomb, model MX60, power +18.5 diopters. ANESTHESIA: Local standby. SURGEON: Dr. Gao. COMPLICATIONS: None. OPERATING TIME: 10 minutes. 4. OPERATION AND FINDINGS: DESCRIPTION OF PROCEDURE: The right pupil was dilated. The anesthetic was administered using a topical technique. The right eye was prepped and draped. A speculum was placed. A clear corneal incision was formed. The chamber was filled with Amvisc Plus and Endocoat. Epinephrine solution was used. A paracentesis was placed. A capsulorrhexis was performed. The nucleus was hydrodissected. The lens was removed with phacoemulsification. Time was 1.00 seconds. The aspiration unit was used to remove the cortex. The capsule was filled with Amvisc Plus. The lens implant was folded and placed into the capsule. The incision was hydrated. The Amvisc was aspirated. The wound was secure. The chamber was deep. The pupil was round. Brimonidine, TobraDex ointment and Vigamox solution were placed. The speculum was removed. The patient was returned to the Recovery Room in stable condition. I attest to the content of the Intraoperative Record and any orders documented therein. Any exceptions are noted below. The scribe's documentation has been prepared in my presence, under my direction and personally reviewed by me in its entirety. I confirm that the note above accurately reflects all work, treatment, procedures, and medical decision making performed by me. I personally scribed for Willis Gao M.D. ([email or web address]) on 07/24/17 at 09:41. Electronically submitted by Rebeca Blake ([email or web address]).
[2017-07-24 09:44] VITALS: TEMP 36.6
--- NOTE | 2017-07-24 10:00 | Anesthesia Progress Nt - [facility] ---
Anesthesia Post Op Note Date & Time Jul 24, 2017 at 09:59 Vital Signs Pain Intensity: 0 Vital Signs Past 12 Hours Date Time Temp Pulse Resp B/P (MAP) Pulse Ox O2 Delivery O2 Flow Rate FiO2 07/24/17 09:44 36.6 56 18 92/51 (65) 94 Room Air 07/24/17 08:42 37.1 72 22 107/67 (80) 94 Room Air Notes Mental Status: alert / awake / arousable, participated in evaluation Pt Amnestic to Procedure: Yes Nausea / Vomiting: adequately controlled Pain: adequately controlled Airway Patency, RR, SpO2: stable & adequate BP & HR: stable & adequate Hydration State: stable & adequate Anesthetic Complications: no major complications apparent
[2017-07-24 10:14] VITALS: BP 106/71; PULSE 61; O2SAT 96
== END | disposition home or self-care (01) ==
LOC: X.SURG 08:15
PROVIDERS: ATTEND Specialist
DX: H25.11 Age-related nuclear cataract, right eye (principal); I25.2 Old myocardial infarction; I10 Essential (primary) hypertension; E78.00 Pure hypercholesterolemia, unspecified; F41.9 Anxiety disorder, unspecified; E11.9 Type 2 diabetes mellitus without complications; M19.90 Unspecified osteoarthritis, unspecified site; K21.9 Gastro-esophageal reflux disease without esophagitis; E66.9 Obesity, unspecified; Z90.710 Acquired absence of both cervix and uterus; Z90.89 Acquired absence of other organs; Z90.49 Acquired absence of other specified parts of digestive tract; I25.10 Atherosclerotic heart disease of native coronary artery without angina pectoris; E03.9 Hypothyroidism, unspecified; I73.00 Raynaud's syndrome without gangrene; Z92.241 Personal history of systemic steroid therapy; Z87.891 Personal history of nicotine dependence

== ENCOUNTER → 2017-09-11 | Day surgery (SDC) | payer OTHER ==
[2017-08-01 10:46] VITALS: Ht 170.2 cm; Wt 67.3 kg
[~2017-09-11] VITALS: Ht 170.2 cm; Wt 67.3 kg
[~2017-09-11] MED LIST changes: +500ML BSS 0.3ML EPI 1:1000PF IRRIG ONE; -ATOR-54 PO; +BETAXOLOL HCL 0.25% OP SUSP PER DROP CHARGE OPL SCH; -BETAXOLOL HCL 0.25% OP SUSP PER DROP CHARGE OPR SCH; -BMX1 PO; +CYCLOPENTOLATE HCL 1% OP SOLN PER DROP CHARGE OPL SCH; -DRGTP12 TD; -FRS/80 PO; +LIDOCAINE 4% OP SOLN DROP CHARGE OPL SCH; -LIDOCAINE 4% OP SOLN DROP CHARGE OPR SCH; +MOXIFLOXACIN OPH SOLN PER DROP CHARGE OPL SCH; -MYCO500T4 PO; -NALO1TAB2 PO; -NIFE30TA86 PO; -NRV5 PO; +NURSING VERBAL MED ORDER ONE; -NUTRLIQ JT; -PANT40TA PO; +PHENYLEPHRINE HCL 2.5% OP SOLN PER DROP CHARGE OPL SCH; -PRLSR20 PO; -PROM25TA16 PO; +PROPARACAINE 0.5% OP SOLN PER DROP CHARGE OPL SCH; -PROPARACAINE 0.5% OP SOLN PER DROP CHARGE OPR SCH; -RXC5 PO; +SPIR50TA3 PO; -SPIR50TA5 PO; +TROPICAMIDE 1% OP SOLN PER DROP CHARGE OPL SCH
[2017-09-11] MEDS: PHENYLEPHRINE HCL 2.5% OP SOLN PER DROP CHARGE OPL SCH ×2 (09:16→09:17)
[2017-09-11] MEDS: TROPICAMIDE 1% OP SOLN PER DROP CHARGE OPL SCH ×2 (09:17→09:18)
[2017-09-11] MEDS: CYCLOPENTOLATE HCL 1% OP SOLN PER DROP CHARGE OPL SCH ×2 (09:18→09:19)
[2017-09-11] MEDS: MOXIFLOXACIN OPH SOLN PER DROP CHARGE OPL SCH ×2 (09:20→09:30)
[2017-09-11] MEDS: LACTATED RINGER'S 1000ML 500 ML IV SCH ×2 (09:31→09:46)
--- NOTE | 2017-09-11 10:21 | [facility] Operative Report ---
Operative Report Date of Service Sep 11, 2017. Operative Report 1. PREOPERATIVE DIAGNOSIS: Pre Senile nuclear cataract, left eye. 2. POSTOPERATIVE DIAGNOSIS: Pre Senile nuclear cataract, left eye. 3. PROCEDURE: Phacoemulsification of left cataract with posterior chamber lens implant, type Bausch [employer] Lomb, model MX60, power +21.5 diopters. ANESTHESIA: Local standby. SURGEON: Dr. Gao. COMPLICATIONS: None. OPERATING TIME: 10 minutes. 4. OPERATION AND FINDINGS: DESCRIPTION OF PROCEDURE: The left pupil was dilated. The anesthetic was administered using a topical technique. The left eye was prepped and draped. A speculum was placed. A clear corneal incision was formed. The chamber was filled with Amvisc Plus and Endocoat. Epinephrine solution was used. A paracentesis was placed. A capsulorrhexis was performed. The nucleus was hydrodissected. The lens was removed with phacoemulsification. Time was 0.69 seconds. The aspiration unit was used to remove the cortex. The capsule was filled with Amvisc Plus. The lens implant was folded and placed into the capsule. The incision was hydrated. The Amvisc was aspirated. The wound was secure. The chamber was deep. The pupil was round. Brimonidine, TobraDex ointment and Vigamox solution were placed. The speculum was removed. The patient was returned to the Recovery Room in stable condition. I attest to the content of the Intraoperative Record and any orders documented therein. Any exceptions are noted below. The scribe's documentation has been prepared in my presence, under my direction and personally reviewed by me in its entirety. I confirm that the note above accurately reflects all work, treatment, procedures, and medical decision making performed by me. I personally scribed for Willis Gao M.D. ([email or web address]) on 09/11/17 at 10:21. Electronically submitted by Rebeca Blake ([email or web address]).
--- NOTE | 2017-09-11 10:24 | Discharge Instructions-SurgCtr ---
Discharge Instructions Date of Service Sep 11, 2017. Visit Reason for Visit: Cataract Left Eye Discharge Discharge Diagnosis / Problem: lens implant left eye Discharge Goals Goal(s): Improve function Medications Stopped Medications Name(s): Spiraldactone, lasix and metformin stopped 09-04-17 Activity Recommendations Activity Limitations: resume your previous activity Lifting Limitations: no more than 10 pounds Exercise/Sports Limitations: gradually increase as tolerated May Resume Sexual Activity: when tolerated Shower/Bathe: tomorrow Driving or Machine Use: resume 1 day after discharge Anesthesia . Post Anesthesia Instructions: If you have had General Anesthesia or IV Sedation: * Do not drive today. * Resume driving when surgeon permits. * Do not make important decisions or sign legal documents today. * Call surgeon for: 1. Temperature elevations greater than 101 degrees F. 2. Uncontrollable pain. 3. Excessive bleeding. 4. Persistent nausea and vomiting. 5. Medication intolerance (nausea, vomiting or rash). * For nausea and vomiting use only clear liquids such as: tea, soda, bouillon until nausea subsides, then gradually increase diet as tolerated. * If you have any concerns or questions, call your surgeon's office. If physician is unavailable and it is an emergency, call 911 or go to the nearest emergency room. . Instructions / Follow-Up Instructions / Follow-Up ACTIVITY RECOMMENDATIONS: * Light activities. * Mild irritation and blurred vision are common for the first few days. * You may walk outside, read, watch television. * Redness around the white part of the eye is common. MEDICATIONS: Resume previous medications unless instructed otherwise by your surgeon. Start all eye drops at 1 pm today: * Eye drops (today and tomorrow): Prednisone - one drop in operative eye every 3 hours while awake Ofloxacin - one drop in operative eye every 3 hours while awake SPECIAL CARE INSTRUCTIONS: * Tape plastic shield over eye to sleep at night. Call your doctor at with any concerns or problems. FOLLOW UP VISIT: Follow-up with Dr Gao at [place] office as scheduled. Diet Recommendations Home Diet: no limitations Procedures Procedures Performed: Left Cataract Phacoemulsification With Intraocular Pending Studies Studies pending at discharge: no Medical Emergencies . Who to Call and When: Medical Emergencies: If at any time you feel your situation is an emergency, please call 911 immediately. . Non-Emergent Contact Non-Emergency issues call your: Picking Machine Operator Helper Call Non-Emergent contact if: your pain is not controlled [phone] . . "Provider Documentation" section prepared by Willis Gao. .
[2017-09-11 10:26] VITALS: TEMP 36.9
--- NOTE | 2017-09-11 10:54 | Anesthesia Progress Nt - [facility] ---
Anesthesia Post Op Note Date & Time Sep 11, 2017 at 10:54 Vital Signs Pain Intensity: 0 Vital Signs Past 12 Hours Date Time Temp Pulse Resp B/P (MAP) Pulse Ox O2 Delivery O2 Flow Rate FiO2 09/11/17 10:26 36.9 66 16 95/62 (73) 96 Room Air 09/11/17 09:14 36.7 77 16 122/74 (90) 96 Room Air Notes Mental Status: alert / awake / arousable, participated in evaluation Pt Amnestic to Procedure: Yes Nausea / Vomiting: adequately controlled Pain: adequately controlled Airway Patency, RR, SpO2: stable & adequate BP & HR: stable & adequate Hydration State: stable & adequate Anesthetic Complications: no major complications apparent
[2017-09-11 11:10] VITALS: BP 103/65; PULSE 57; O2SAT 97
== END | disposition home or self-care (01) ==
LOC: X.SURG 08:54
PROVIDERS: ATTEND Specialist
DX: H26.8 Other specified cataract (principal); J44.9 Chronic obstructive pulmonary disease, unspecified; K21.9 Gastro-esophageal reflux disease without esophagitis; I11.9 Hypertensive heart disease without heart failure; E11.9 Type 2 diabetes mellitus without complications; M34.9 Systemic sclerosis, unspecified; Z88.2 Allergy status to sulfonamides; Z88.8 Allergy status to other drugs, medicaments and biological substances

== ENCOUNTER → 2017-11-25 | Outpatient (CLI) | payer OTHER ==
[~2017-11-25] MED LIST changes: -500ML BSS 0.3ML EPI 1:1000PF IRRIG ONE; -ACETAMINOPHEN 325 MG TAB PO PRN; -AMVISC PLUS 0.8ML SYRINGE INT OCU ONE; -ATROPINE SULFATE 0.1 MG/ML 5ML SYR IV PRN; -BETAXOLOL HCL 0.25% OP SUSP PER DROP CHARGE OPL SCH; -BRIMONIDINE TART 0.2% OP SOLN PER DROP CHARGE ONE; -BSS FLUSH ONE; -CYCLOPENTOLATE HCL 1% OP SOLN PER DROP CHARGE OPL SCH; -ENDOCOAT 0.85ML SYRINGE INT OCU ONE; -EpHEDrine SULFATE INJ 50 MG/ML AMP IV PRN; -EpINEphrine INJ 1MG/ML AMP 1 MG/ML AMP ONE; -LACTATED RINGER'S 1000ML 500 ML IV SCH; -LIDOCAINE 4% OP SOLN DROP CHARGE ONE; -LIDOCAINE 4% OP SOLN DROP CHARGE OPL SCH; -LIDOCAINE HCL 1% MPF 2 ML VIAL ONE; -MIDAZOLAM HCL 1 MG/ML 2ML VIAL ONE; -MIX: 4ML BSS 1ML EPI 1:1000 PF INSTIL ONE; -MOXIFLOXACIN OPH SOLN PER DROP CHARGE ONE; -MOXIFLOXACIN OPH SOLN PER DROP CHARGE OPL SCH; -NURSING VERBAL MED ORDER ONE; -OCUCOAT 1 ML SOLN IO ONE; -PHENYLEPHRINE HCL 2.5% OP SOLN PER DROP CHARGE OPL SCH; -POVIDONE-IODINE OP SOLN 30 ML BTL ONE; -PROPARACAINE 0.5% OP SOLN PER DROP CHARGE OPL SCH; -TOBRAMYCIN/DEXAMETHASONE OPH OINT PER APPLN CHARGE ONE; -TROPICAMIDE 1% OP SOLN PER DROP CHARGE OPL SCH
[2017-11-25 11:13] LABS: HEMOGLOBIN A1C 6.4 % (4.5-5.6)
== END | disposition home or self-care (01) ==
LOC: C.LAB 16:15
PROVIDERS: ATTEND Family Medicine
DX: E11.22 Type 2 diabetes mellitus with diabetic chronic kidney disease (principal); N18.9 Chronic kidney disease, unspecified; E03.9 Hypothyroidism, unspecified